=== PATIENT | male | born 1970 | race Caucasian/White ===

== ENCOUNTER 2024-06-30 17:25 | Emergency (ER) | payer BC ==
[~2024-06-30] VITALS: Ht 177.8 cm; Wt 62.6 kg
[2024-06-30 17:32] VITALS: BP 128/97; PULSE 87; RESP 15; O2SAT 97
[2024-06-30] MEDS: penicillin G benzathine 1.2 million unit/2ml syringe IM ONE (17:55)
[2024-06-30] MEDS: PENICILLIN G BENZATHINE 2,400,000 UNIT/4 ML SYRINGE IM ONE (18:36)
[2024-06-30 18:52] VITALS: TEMP 97.9
== END 2024-06-30 19:12 | disposition home or self-care (01) ==
LOC: ER 17:25
DX: Z20.2 Contact with and (suspected) exposure to infections with a predominantly sexual mode of transmission (principal)
CPT/HCPCS: 36415; 86592; 96372; 99283; J0561

== ENCOUNTER 2024-07-07 17:00 | Emergency (ER) | payer BC ==
[~2024-07-07] VITALS: Ht 177.8 cm; Wt 79.5 kg
[2024-07-07 17:22] VITALS: BP 124/91; PULSE 97; RESP 18; TEMP 98.2; O2SAT 95
== END 2024-07-07 18:51 | disposition left against medical advice (07) ==
LOC: ER 17:01
DX: Z53.21 Procedure and treatment not carried out due to patient leaving prior to being seen by health care provider (principal)